=== PATIENT | female | born 1995 | race Caucasian/White ===

== ENCOUNTER 2022-08-13 07:20 | Outpatient (CLI) | payer BC, SELFPAY ==
--- NOTE | 2022-08-13 07:15 | CRLHL7_ITS ---
For Patients: As a result of the Cures Act, medical imaging exams and procedure reports are released immediately into your electronic medical record. You may view this report before your referring provider. If you have questions, please contact your health care provider. INDICATION: First trimester scan, establish dates. COMPARISON: None. TECHNIQUE: Real-time oreilly-scale imaging of the pelvis was performed. FINDINGS: Sonographic imaging demonstrates a single intrauterine gestation. No cardiac rate detected on today`s study. The embryo`s crown-rump length measurement of 0.5 cm corresponds to a gestational age of 6 weeks 1 day with a sonographic due date of 04/07/2023. There is a normal-appearing yolk sac. The gestational sac has a normal appearance. There is no evidence of a perigestational hemorrhage. The amount of fluid within the sac appears appropriate for gestational age. The cervix is closed. The myometrium appears normal. The ovaries are of normal size. Probable corpus luteal cyst left ovary measuring 2.2 cm. There are no suspicious fluid collections noted in the cul-de-sac. IMPRESSION: Intrauterine with pole measuring 5 millimeters without heart tones. Follow-up in 11-14 days recommended. Dictated by Hardik Aranda MD @ 08/13/2022 10:36:59 AM (Electronically Signed)
== END 2022-08-13 07:21 | disposition home or self-care (01) ==
PROVIDERS: Visit Provider Advanced Practice Midwife
DX: Z34.91 Encounter for supervision of normal pregnancy, unspecified, first trimester (principal)
CPT/HCPCS: 76817

== ENCOUNTER 2022-08-26 08:56 | Outpatient (CLI) | payer BC, SELFPAY | END 2022-08-26 08:57 | disposition home or self-care (01) | PROVIDERS: Visit Provider Registered Nurse | DX: Z34.91 Encounter for supervision of normal pregnancy, unspecified, first trimester (principal) | CPT/HCPCS: 76817; 82565; 82570; 84156; 84450; 84460; 84520; 84550; 86592; 86703; 86762; 86787; 86803; 86850; 86900; 86901; 87086; 87340; 87491; 87591 ==

== ENCOUNTER 2022-09-23 10:45 | Outpatient (CLI) | payer BC, SELFPAY | END 2022-09-23 10:46 | disposition home or self-care (01) | PROVIDERS: Visit Provider Registered Nurse | DX: Z34.81 Encounter for supervision of other normal pregnancy, first trimester (principal) | CPT/HCPCS: 76801 ==

== ENCOUNTER 2022-09-25 09:27 | Day surgery (SDC) | payer BC, SELFPAY ==
[2022-09-25] MEDS: DOXYCYCLINE HYCLATE 200 MG in 0.9 % SODIUM CHLORIDE Mini-bag 100 ML 100 MG IVPB (09:45)
[2022-09-25] MEDS: SODIUM CHLORIDE 0.9 % (FLUSH) 10 ML SYRINGE IVF (09:45)
[2022-09-25] MEDS: LACTATED RINGERS 1000 ML 1,000 ML 100 ML IV (09:45)
--- NOTE | 2022-09-25 09:46 | SUR.PREOP ---
home covid antigen test negative on 09/24/22 @ 2100.
[2022-09-25 10:03] VITALS: BMI 30.4
[2022-09-25 10:09] VITALS: BP 118/84; PULSE 78; RESP 16; TEMP 36.5; O2SAT 98
[2022-09-25 10:11] LABS: Hemoglobin* 13.3 gm/dL (12.0-16.0)
--- NOTE | 2022-09-25 10:12 | P.PCNOB_ITS ---
Procedure Pre-op/Post-op diagnoses: Pre-Op/Post-Op Diagnoses Operation Date: 09/25/22 10:55 <No data on this case meets the specified criteria> Procedure: Procedures Operation Date: 09/25/22 10:55 <No data on this case meets the specified criteria> Estimated blood loss (mL): 75 Anesthesia type: MAC Complications: none Specimen: uterine contents Disposition: PACU Narrative: Preoperative diagnosis: Jace is a -year-old 2 para 1011 with a missed at approximately 8 weeks gestation by ultrasound Postoperative diagnosis: Same Procedure: Suction curettage Anesthesia: Conscious sedation, paracervical block Surgeon: Ros Webster MD Visitor Services Representative: Not applicable Estimated blood loss: 75 mL Specimen: Products of conception to pathology Findings: On exam under anesthesi: the uterus was approximately 8 weeks size, anterior position. Cervical os was dilated without active bleeding. Adnexa were without mass or fullness palpable. The uterus sounded to 8 cm. On suction curettage there was a moderate to large amount of products of conception. Procedure: Ester was taken to the operating room where conscious sedation was found to be adequate. She was placed in the dorsal lithotomy position and an exam under anesthesia was performed with with findings stated above. She was then prepped and draped in normal sterile manner. Bladder was drained with straight cancerization with 50 cc return of urine. A bivalve speculum was placed in the vagina to visualize the cervix. A paracervical block was placed using 0.25% Marcaine with epi: 5 mL injected at the 12, 4 and 8 o'clock positions on the cervix. The anterior lip of the cervix was grasped with a long Allis clamp. The cervix was dilated to Hegar # 8. A #8 curved curette was then advanced into the uterus without difficulty. A suction curettage was then performed using 60 mmHg pressure. 4 passes with the curette were performed to remove all visualized tissue. The curette was removed and mild, sharp curettage was performed to verify that all of the products of conception had been removed. One last pass with the curved curette was then made to verify that all of the tissue had been removed. The Allis clamp was removed from the anterior lip of the cervix. Excellent hemostasis was noted. The speculum was then removed from the vagina. The patient tolerated this procedure well. Sponge, lap and instrument counts were correct x2 the end of the procedure. The patient was awakened from sedation and taken to the recovery area in stable condition.
[2022-09-25] MEDS: BUPIVACAINE 0.25 %/EPI 1:200K 30 ml INJECTION (11:35)
--- NOTE | 2022-09-25 11:57 | W.ANESCHARGE ---
Anesthesia Charges Start Date/Time Anesthesia Start Date: 09/25/22 Anesthesia Start Time: 11:17 Stop Date/Time Anesthesia Stop Date: 09/25/22 Anesthesia Stop Time: 12:00 Summary Emergency: No
[2022-09-25 12:01] VITALS: BP 123/76; PULSE 88; RESP 16; TEMP 36.7; O2SAT 95
--- NOTE | 2022-09-25 12:03 | W.ANESCHARGE ---
Anesthesia Charges Start Date/Time Anesthesia Start Date: 09/25/22 Anesthesia Start Time: 11:17 Stop Date/Time Anesthesia Stop Date: 09/25/22 Anesthesia Stop Time: 12:00 Summary Emergency: No
[2022-09-25 12:16] VITALS: BP 117/78; PULSE 82; RESP 16; O2SAT 96
[2022-09-25 12:35] VITALS: BP 122/85; PULSE 67; RESP 14; O2SAT 98
[2022-09-25 12:59] VITALS: BP 117/74; PULSE 64; RESP 14; O2SAT 99
== END 2022-09-25 13:10 | disposition home or self-care (01) ==
PROVIDERS: Visit Provider Obstetrics & Gynecology
PROC: (CPT 59820; principal; 2022-09-25 10:45)
DX: O02.1 Missed abortion (principal); Z3A.08 8 weeks gestation of pregnancy
CPT/HCPCS: 59820; 00940; 01965; 36415; 85018; 86850; 86900; 86901; 88271; 88275; 88305; J1100; J2250; J2405; J2704; J3010; J3490; J7120

== ENCOUNTER 2022-10-08 16:20 | Outpatient (CLI) | payer BC, SELFPAY | END 2022-10-08 16:21 | disposition home or self-care (01) | PROVIDERS: Visit Provider Obstetrics & Gynecology | DX: O08.89 Other complications following an ectopic and molar pregnancy (principal) | CPT/HCPCS: 84702 ==

== ENCOUNTER 2022-10-15 16:46 | Outpatient (CLI) | payer BC, SELFPAY ==
[2022-10-15 12:56] LABS: HCG Quantitative* 404.48 mIU/mL
== END 2022-10-15 16:47 | disposition home or self-care (01) ==
PROVIDERS: Visit Provider Obstetrics & Gynecology
DX: O01.1 Incomplete and partial hydatidiform mole (principal)
CPT/HCPCS: 84702

== ENCOUNTER 2022-10-22 12:03 | Outpatient (CLI) | payer BC, SELFPAY ==
[2022-10-22 14:09] LABS: HCG Quantitative* 190.03 mIU/mL
== END 2022-10-22 12:04 | disposition home or self-care (01) ==
LOC: NFLDREF 12:07
PROVIDERS: Visit Provider Obstetrics & Gynecology
DX: O02.1 Missed abortion (principal); O01.1 Incomplete and partial hydatidiform mole
CPT/HCPCS: 84702

== ENCOUNTER 2022-10-31 11:58 | Outpatient (CLI) | payer BC, SELFPAY ==
[2022-10-31 13:09] LABS: HCG Quantitative* 89.63 mIU/mL
== END 2022-10-31 11:59 | disposition home or self-care (01) ==
PROVIDERS: Visit Provider Obstetrics & Gynecology
DX: O01.1 Incomplete and partial hydatidiform mole (principal); O02.1 Missed abortion
CPT/HCPCS: 84702

== ENCOUNTER 2022-11-07 10:14 | Outpatient (CLI) | payer BC, SELFPAY ==
[2022-11-07 12:53] LABS: HCG Quantitative* 16.35 mIU/mL
== END 2022-11-07 10:15 | disposition home or self-care (01) ==
LOC: NFLDREF 10:14
PROVIDERS: Visit Provider Obstetrics & Gynecology
DX: O01.1 Incomplete and partial hydatidiform mole (principal); O02.1 Missed abortion
CPT/HCPCS: 84702

== ENCOUNTER 2022-11-14 16:19 | Outpatient (CLI) | payer BC, SELFPAY ==
[2022-11-14 11:35] LABS: HCG Quantitative* < 2.39 mIU/mL
== END 2022-11-14 16:20 | disposition home or self-care (01) ==
PROVIDERS: Visit Provider Obstetrics & Gynecology
DX: O01.1 Incomplete and partial hydatidiform mole (principal)
CPT/HCPCS: 84702

== ENCOUNTER 2022-12-12 10:02 | Outpatient (CLI) | payer BC, SELFPAY ==
[2022-12-12 13:50] LABS: HCG Quantitative* < 2.39 mIU/mL
== END 2022-12-12 10:03 | disposition home or self-care (01) ==
LOC: NFLDREF 10:02
PROVIDERS: Visit Provider Obstetrics & Gynecology
DX: O02.1 Missed abortion (principal)
CPT/HCPCS: 84702

== ENCOUNTER 2023-01-12 08:46 | Outpatient (CLI) | payer BC, SELFPAY ==
[2023-01-12 12:40] LABS: HCG Quantitative* < 2.39 mIU/mL
== END 2023-01-12 08:47 | disposition home or self-care (01) ==
LOC: NFLDREF 11:15
PROVIDERS: Visit Provider Obstetrics & Gynecology
DX: O02.1 Missed abortion (principal)
CPT/HCPCS: 84702

== ENCOUNTER 2024-03-09 08:45 | Outpatient (CLI) | payer BC, SELFPAY | END 2024-03-09 08:46 | disposition home or self-care (01) | LOC: NFLDREF 03-29 08:58 | PROVIDERS: Visit Provider Physician Assistant | DX: Z13.220 Encounter for screening for lipoid disorders (principal) | CPT/HCPCS: 80061 ==